=== PATIENT | male | born 1970 | race Asian ===

== ENCOUNTER 2025-01-01 05:47 | Emergency (ER) | payer BC ==
[2025-01-01 05:55] VITALS: BMI 29.7
[2025-01-01] MEDS ORDERED: METOCLOPRAMIDE HCL INJECTION 10 MG/2 ML VIAL ONE (06:51)
[2025-01-01] MEDS ORDERED: ACETAMINOPHEN INJECTION 100 ML ONE (06:51)
[2025-01-01] MEDS: METOCLOPRAMIDE HCL INJECTION 10 MG/2 ML VIAL IVPUSH ONE (07:29)
[2025-01-01] MEDS: SODIUM CHLORIDE 0.9% 500 ML INFUS.BAG IV ONE (07:29)
[2025-01-01] MEDS: ACETAMINOPHEN 1000 MG/100 ML BAG IVPB ONE (07:29)
[2025-01-01 07:52] VITALS: BP 145/99; PULSE 69; RESP 16; TEMP 97.6
[2025-01-01] MEDS ORDERED: KETOROLAC TROMETHAMINE 15 MG/ML VIAL IVPUSH ONE (08:21)
[2025-01-01] MEDS ORDERED: KETOROLAC TROMETHAMINE 15 MG/ML VIAL ONE (08:25)
[2025-01-01 12:00] LABS: HCV DIAGNOSTIC IN-HOUSE W/RFLX NON-REACTIVE (NONREACTIVE)
[2025-01-01 22:17] LABS: HIV INTERPRETATION NEGATIVE (NEGATIVE)
== END 2025-01-01 08:40 | disposition home or self-care (01) ==
LOC: JER 05:47
PROC: 3E033GC Introduction of Other Therapeutic Substance into Peripheral Vein, Percutaneous Approach (ICD-10-PCS; principal; 2025-01-01)
PROC: 3E033GC Introduction of Other Therapeutic Substance into Peripheral Vein, Percutaneous Approach (ICD-10-PCS; 2025-01-01)
PROC: 3E033GC Introduction of Other Therapeutic Substance into Peripheral Vein, Percutaneous Approach (ICD-10-PCS; 2025-01-01)
DX: R51.9 Headache, unspecified (principal); R11.0 Nausea
CPT/HCPCS: 36415; 86803; 87389; 99284-25